=== PATIENT | female | born 1965 | race Caucasian/White ===

== ENCOUNTER 2024-10-20 15:05 | Emergency (ER) | payer MEDICARE, MEDICAID, SELFPAY ==
[2024-10-20 15:08] VITALS: BP 173/83; PULSE 82; RESP 27; TEMP 36.7; O2SAT 72; O2SAT 94; BMI 31.7
[2024-10-20 15:11] VITALS: BP 173/83; PULSE 82; RESP 18; TEMP 36.7; O2SAT 94
--- NOTE | 2024-10-20 15:16 | ED.VIS.DYS ---
HPI History of Present Illness Chief Complaint: Shortness of Breath Informant: patient Onset/Context/Timing Onset: Weeks (1.5) Context: gradual Timing: Continuous Quality: Positive for Dyspnea on exertion Worsened by: Exertion Relieved by: Rest and - (Lasix) Associated Symptoms cough, rhinorrhea and sweats; Negative for post nasal drip, ear pain, fever, sore throat, chills, clear sputum, white sputum, yellow sputum or green sputum Chest Pain: Positive for None Narrative Narrative: Patient presents with shortness of breath that has been getting worse over the past 1-1/2 weeks. Patient states it is gradually getting worse. Patient states it is constant. Patient states that her breathing is worse with any exertion. Patient states she is unable to walk a few feet before she gets short of breath. Patient states it gets better with rest. Patient states she also took some Lasix due to some swelling in her feet. Patient states she was feeling better after taking the Lasix. Patient admits to a cough but denies any sputum. Patient admits to some rhinorrhea. Patient states she occasionally breaks out into a sweat but denies any fevers or chills. Patient states the sweating only last for a minute or 2. Patient denies any chest pain. [facility] Medical History (Updated 10/20/24 @ 19:[address] Andres Villagomez DO) Coronary artery disease Congestive heart failure Allergy/AdvReac Type Severity Reaction Status Date / Time amoxicillin (From Augmentin) Allergy Intermediate Rash Verified 10/20/24 15:08 clavulanic acid (From Allergy Intermediate Rash Verified 10/20/24 15:08 Augmentin) naproxen (From Aleve) Allergy Intermediate Hives Verified 10/20/24 15:08 morphine AdvReac Unknown Other Verified 10/20/24 15:08 Surgical History Hx of CABG S/P ORIF (open reduction internal fixation) fracture Hx of kyphoplasty Hx of tubal ligation Hx of cholecystectomy Social History (Updated 10/20/24 @ 15:[address] Andres Villagomez DO) Smoking Status: Current every day smoker tobacco type: cigarettes ROS ROS ED Constitutional Constitutional ED: Denies chills or fever(s) Eyes Eyes: Denies blurry vision or change in vision ENT ENT ED: Denies rhinorrhea or sore throat Cardiovascular Cardiovascular: Denies chest pain or palpitations Respiratory/Chest Respiratory/Chest: Reports cough and dyspnea Gastrointestinal Gastrointestinal: Reports nausea and vomiting Genitourinary Genitourinary ED: Denies dysuria or hematuria Musculoskeletal Musculoskeletal: Reports back pain; Denies neck pain Integumentary Denies abscess or rash Neurologic Neurologic: Denies headache(s) or weakness Allergic/Immunologic Allergic/Immunologic ED: Denies mouth swelling or urticaria EXAM Physical Exam Const Vital Signs: 10/20/24 15:08 10/20/24 15:08 10/20/24 15:11 Temperature 98.1 F 98.1 F Temperature Source Oral Oral Pulse Rate 82 82 Respiratory Rate 27 H 18 Respiratory Effort Respiratory Depth Blood Pressure 173/83 H 173/83 H Blood Pressure Mean 113 113 Pulse Ox 72 94 94 Oxygen Delivery Method Room Air Nasal Cannula Nasal Cannula Oxygen Flow Rate (L/min) 2 2 10/20/24 16:09 10/20/24 16:09 10/20/24 16:15 Temperature 98.2 F Temperature Source Oral Pulse Rate 79 80 Respiratory Rate 20 H 22 H Respiratory Effort Respiratory Depth Blood Pressure 109/83 H 154/61 H Blood Pressure Mean 91 92 Pulse Ox 94 96 95 Oxygen Delivery Method Venturi Mask Nasal Cannula Nasal Cannula Oxygen Flow Rate (L/min) 2 2 2 10/20/24 16:15 10/20/24 17:00 Temperature 97.9 F Temperature Source Oral Pulse Rate 79 Respiratory Rate 16 Respiratory Effort Short of Breath Respiratory Depth Normal Blood Pressure 152/102 H Blood Pressure Mean 118 Pulse Ox 97 Oxygen Delivery Method Nasal Cannula Room Air Oxygen Flow Rate (L/min) 2 Positive well nourished and well developed General Appearance ED: well developed and NAD HEENT Reports moist mucous membranes Neck supple and no JVD Resp normal respiratory effort Auscultation: rales bilateral lower Cardio regular rate and regular rhythm GI non-tender and non-distended Palpation: soft Extremity normal to inspection General Extremety ED: Negative for edema or tenderness General Extremity: Negative for edema Neuro oriented x3, CN's II-XII intact bilaterally and no sensory deficits noted Naeem Coma Scale: document GCS findings Spontaneous Obeys Commands Oriented 15 Sensorium / Orientation: alert Speech: speech normal Motor Exam: strength 5/5 throughout Psych mental status grossly normal MDM MDM MDM Narrative Medical decision making narrative: Differential diagnosis includes congestive heart failure, pneumonia, bronchitis, cardiac dysrhythmia, cardiac ischemia, electrolyte abnormality, and anxiety. EKG will be obtained to assess for cardiac dysrhythmia and cardiac ischemia. Chest x-ray will be obtained to assess for pneumonia and bronchitis. CBC will be obtained to assess for leukocytosis and anemia. Basic metabolic profile will be obtained to assess for electrolyte abnormality and renal function. BNP will be obtained to assess for congestive heart failure. High-sensitivity troponin will be obtained to assess for cardiac ischemia. 2-hour repeat high-sensitivity troponin will be obtained to assess for ongoing cardiac ischemia. History & Record Review Additional record(s) reviewed:: No prior records Lab Data Attestation: I reviewed the patient's lab results. Lab results narrative: CBC was reviewed. Hemoglobin was 17.2 hematocrit was 53.7. Basic metabolic profile was reviewed. Sodium was 132 and potassium was 3.1. Chloride was slightly low at 88. Glucose was mildly elevated 144. Initial high-sensitivity troponin was reviewed and was slightly elevated at 31. BNP was reviewed and was slightly elevated at 4007. 2-hour repeat high-sensitivity troponin was reviewed and was 25. Labs: Laboratory Results - last 24 hr 10/20/24 10/20/24 16:00 17:55 WBC 8.0 RBC 6.69 H Hgb 17.2 H Hct 53.7 H MCV 80.3 L MCH 25.7 L MCHC 32.0 RDW Std Deviation 59.9 H RDW Coeff of [place] 21.8 H Plt Count 201 MPV 9.1 Immature Gran % (Auto) 0.300 Neut % (Auto) 74.5 H Lymph % (Auto) 15.9 L Andrew % (Auto) 8.3 Eos % (Auto) 0.5 Baso % (Auto) 0.5 Absolute Neuts (auto) 6.0 Absolute Lymphs (auto) 1.27 Nucleated RBC % 0 Differential Comment SCANNED Platelet Estimate ADEQUATE Polychromasia 1+ Anisocytosis 1+ Sodium 132 L Potassium 3.1 L Chloride 88 L Carbon Dioxide 30.0 Anion Gap 14 BUN 15 Creatinine 0.68 L Estim Creat Clear Calc 84.22 Est GFR (MDRD) Non-Af 101 BUN/Creatinine Ratio 22.1 H Glucose 144 H Calcium 9.1 Troponin T High Sens 31 H Troponin T Hi Sens 2 Hr 25 H NT pro BNP II 4007 H Radiography Chest X-Ray - ED: 1 View, Read by ED Physician, Read by Radiologist, Cardiomegaly and CHF (Mild congestion) Diagnostic Testing: Clinical Impression(s) from Imaging Studies Chest X-Ray 10/20/24 16:10 IMPRESSION: Cardiomegaly with mild congestion. Reading Location: [facility] Portable 1 view chest x-ray was obtained. On my independent interpretation, lung wild show mild congestion. There is cardiomegaly. Bony thorax is normal. Radiologist also interpreted the x-ray and agrees. EKG Initial EKG: Attestation: I personally reviewed and interpreted this EKG as follows: Interpretation: Sinus Rhythm (80) and Non-Specific ST Changes Comments: EKG was obtained. On my independent interpretation, shows a normal sinus rhythm with a rate of 80. MN interval was normal at 152 ms. QRS interval was normal at 116 ms. QTc interval slightly prolonged at 500 ms. Greene was normal. There is left ventricular hypertrophy. There are nonspecific ST-T wave changes. Prior EKG tracings: not available for review Prior: No Prior Treatment and Re-Evaluation :: Patient was given aspirin. Patient was given a dose of Lasix. Patient told nursing staff that she does not want to wait any longer in the emergency department. Patient did not want to wait for her repeat troponin results. Patient was advised of the risks and benefits of signing out AGAINST MEDICAL ADVICE. Patient states she does not want to stay here any longer and will sign out AGAINST MEDICAL ADVICE. Discharge Plan Triage Chief Complaint: Shortness of Breath ED Provider: Andres Villagomez Dx/Rx/DC Orders Clinical Impression: Congestive heart failure, Dyspnea Primary Care Provider: Tatiana Marcos Referrals: [facility] Doctor,Out of [Non-Staff] - Print Language: Upper Sorbian Disposition Disposition: Against Medical Advice Discharge Date/Time: 10/20/24 18:17
--- NOTE | 2024-10-20 15:41 | EKG12_ITS ---
Test Reason : SOB Blood Pressure : */* mmHG Vent. Rate : 80 BPM Atrial Rate : 80 BPM P-R Int : 152 ms QRS Dur : 116 ms QT Int : 434 ms P-R-T Axes : 68 78 91 degrees QTcB Int : 500 ms Normal sinus rhythm Possible Left atrial enlargement Left ventricular hypertrophy with QRS widening ( Louis product , [place]h[employer]-[place] ) Nonspecific ST abnormality Prolonged QT Abnormal ECG Confirmed by Kvng Alvarez ([id number]), script editor PATT AVINA ([id number]) on 10/24/2024 11:41:09 AM Referred By: Confirmed By: Kvng Alvarez
[2024-10-20 16:09] VITALS: BP 109/83; PULSE 79; RESP 20; O2SAT 94; O2SAT 96
--- NOTE | 2024-10-20 16:10 | RAD_ITS ---
EXAM: XR Chest, 1 View CLINICAL INDICATION: CHEST PAIN TECHNIQUE: Frontal view of the chest. COMPARISON: No relevant prior studies available. FINDINGS: LUNGS AND PLEURAL SPACES: See below. HEART: Cardiomegaly with mild congestion. MEDIASTINUM: Unremarkable. Normal mediastinal contour. BONES/JOINTS: Fixation hardware of the left clavicle. No acute fracture. RAD/Chest 1 View (Portable) IMPRESSION: Cardiomegaly with mild congestion. Reading Location: [id number]
[2024-10-20 16:13] LABS: Absolute Lymphocyte Count 1.27 X10^3/uL (0.83-4.51); Basophil# 0.04 X10^3/uL; Basophil% 0.5 % (0-1); Eosinophil# 0.04 X10^3/uL; Eosinophils% 0.5 % (0-5); Hematocrit 53.7 % (37-47); Hemoglobin 17.2 g/dL (12.0-15.0); Lymphocyte # 1.27 X10^3/ul (0.83-4.51); Lymphocyte % 15.9 % (19-41); Mean Corpuscular Hgb 25.7 pg (27.0-32.0); Mean Corpuscular Volume 80.3 fL (81-99); Mean Platelet Vol. 9.1 fl (6.2-12.0); Monocyte# 0.66 X10^3/uL; Monocyte% 8.3 % (0-10); NRBC Flagged by Analyzer 0 % (0-5); Neutrophil # 5.95 X10^3/uL (2.7-7.7); Neutrophil % 74.5 % (47-70); POSITIVE MORPHOLOGY YES; Platelet Count 201 K/mm3 (150-450); RBC Distribution Width CV 21.8 % (11.6-14.6); RBC Distribution Width SD 59.9 fl (35.1-43.9); Red Blood Count 6.69 M/mm3 (4.2-5.4)
[2024-10-20 16:15] VITALS: BP 154/61; PULSE 80; RESP 22; TEMP 36.8; O2SAT 94; O2SAT 95
[2024-10-20 16:33] LABS: Anion Gap 14 (5-15); BUN 15 mg/dL (4-19); BUN/Creat Ratio 22.1 RATIO (10-20); Calcium,Total 9.1 mg/dL (7.6-11.0); Chloride 88 mmol/L (98-108); Creatinine, Serum 0.68 mg/dL (0.70-1.20); EST Glomerular Filtration Rate 101 (>60); Estimated Creatinine Clearance 84.22 ml/min (50-250); Glucose 144 mg/dL (70-99); Potassium 3.1 mmol/L (3.3-5.1); Pro- Brain NATRIURETIC PEPTIDE 4007 pg/mL (<=900); Sodium Level 132 mmol/L (133-145); Troponin T High Sensitivity 31 ng/L (<=14)
[2024-10-20 17:00] VITALS: BP 152/102; PULSE 79; RESP 16; TEMP 36.6; O2SAT 97
[2024-10-20 17:23] LABS: Anisocytosis 1+; Differential Comment SCANNED; Platelet Estimate ADEQUATE (ADEQ); Polychromasia 1+
--- NOTE | 2024-10-20 17:39 | ED.RN ---
Pt states I'm not waiting around for anything else! This RN provided education on our need to wait 2 hours from her first blood draw for troponin levels r/t her cardiac health. Pt is refusing any further care. AMA form requested.
[2024-10-20] MEDS: Furosemide 40 MG/4 ML Vial IV (17:47)
[2024-10-20 18:32] LABS: Troponin T High Sens 2 HR 25 ng/L (<=14)
== END 2024-10-20 18:17 | disposition left against medical advice (07) ==
PROVIDERS: Emergency Provider Emergency Medicine; Visit Provider Emergency Medicine
DX: R06.00 Dyspnea, unspecified (principal); I50.9 Heart failure, unspecified; I25.10 Atherosclerotic heart disease of native coronary artery without angina pectoris; Z95.1 Presence of aortocoronary bypass graft; Z98.51 Tubal ligation status; Z90.49 Acquired absence of other specified parts of digestive tract; F17.210 Nicotine dependence, cigarettes, uncomplicated
CPT/HCPCS: 71045; 80048; 83880; 84484; 85025; 93005; 96374; 99283; A4216; J1938